=== PATIENT | female | born 1990 | race Caucasian/White ===

== ENCOUNTER 2016-11-26 20:07 | Emergency (ER) | payer SELFPAY ==
[~2016-11-26] VITALS: Ht 177.8 cm; Wt 66.1 kg
[2016-11-26 21:00] LABS: HEMATOCRIT 37.5 % (36.0-46.0); MCH 29.8 PG (29.0-34.0); MCHC 34.9 G/DL (30.0-36.0); MCV 85.2 FL (83-99); MEAN PLAT.VOLUME 9.4 uM^3 (9.5-12.4); PLATELET COUNT 287 K/uL (156-360); RBC DIS.WIDTH-CV 11.7 % (11.8-14.6); RBC DIS.WIDTH-SD 36.3 % (39-53)
[2016-11-26 21:13] LABS: CHLORIDE 105 mEq/L (99-109); POTASSIUM 3.6 mEq/L (3.7-5.4); SODIUM 142 mEq/L (136-147)
[2016-11-26 21:14] LABS: GLUCOSE 72 mg/dL (70-99)
[2016-11-26 21:16] LABS: ANION GAP 10 MEQ/L (2-14)
[2016-11-26 21:18] LABS: GFR ESTIMATE (CALCULATED) > 59 mL/min/
[2016-11-26 21:19] LABS: UREA NITROGEN (BUN) 12 mg/dL (9-23)
[2016-11-26 21:58] LABS: INFLUENZA A VIRAL ANTIGEN NEGATIVE; INFLUENZA B VIRAL ANTIGEN NEGATIVE
[2016-11-26] MEDS ORDERED: VIBRAMYCIN100 MG PO (22:18)
[2016-11-26 22:35] VITALS: BP 145/88
[2016-11-26 22:35] LABS: QUANTITATIVE HCG < 4.0 MIU/ML
[2016-11-27 12:48] LABS: LYME DISEASE SEROLOGY SCREEN NEGATIVE (NEGATIVE)
== END 2016-11-26 22:36 | disposition home or self-care (01) ==
LOC: EME 20:07
PROVIDERS: Physician Assistant Medical
DX: A69.20 Lyme disease, unspecified (principal); R50.9 Fever, unspecified
CPT/HCPCS: 71020; 80048; 84702; 85027; 86618; 87502; 87651 90; 99281; 99283